=== PATIENT | male | born 1990 | race Caucasian/White ===

== ENCOUNTER 2024-11-01 06:58 | Observation (INO) | payer BC, SELFPAY ==
[2024-11-01] VITALS (32 sets, daily range): BP systolic 117–160; BP diastolic 71–92; PULSE 63–96; TEMP 36.5–36.7; O2SAT 91–100; BMI 43.5; BMI 44.2
--- OUTSIDE RECORDS SUMMARY | 2024-11-01 07:11 | XMS_ITS | Clinical Summary ---
Author Organization [facility] Address [address] [place] [id number] Care Team Providers Care Academic Guidance Specialist Name Role Phone Unavailable Primary Care Provider Unavailabl e Social History Tobacco Use Types Packs/Day Years Used Date Smoking Tobacco: Never Assessed Sex and Gender Information Value Date Recorded Sex Assigned at Not on file Legal Sex Male 3:29 PM EDT Gender Identity Male 09/06/2021 9:45 AM EDT Sexual Orientation Straight 09/06/2021 9: 45 AM EDT Plan of Treatment Health Maintenance Due Date Last Done Comments Tetanus: Every 10yrs 1990 Wellness Visit 09/03/1995 Depression Screening/Follow- Up (PHQ-2/9) 2004 HIV Screening 09/03/2007 Hepatitis C Screening 2010 COVID-19 Vaccine (2023-2 5 season) 2023 Influenza Vaccine (#1) 2024 Pneumococcal Vaccine: Ped or At-Risk Aged Out No longer eligible b ased on patient's age to complete this topic Insurance DENTAL DELTA DENTAL
--- OUTSIDE RECORDS SUMMARY | 2024-11-01 07:11 | XMS_ITS | Clinical Summary ---
Author Organization [facility] Address [address], [address] [place] [address] Care Team Providers Care Gas Scrubber Operator Name Role Phone Moustapha Rodriguez MD Primary Care Provider [phone] Allergies No known active allergies Medications butalbital-acetami nophen-caffeine (FIORICET, ESGIC) 50-325-40 MG per tabletIndications: Migraine without status migrainosus, not intractable, unspecified migraine type Take 1 tablet by mouth every 4 hours as needed for Headaches or Migraine 90 tablet 1 09/20/19 20 Active tamsulosin (FLOMAX) 0.4 MG capsule Take 1 capsule by mouth daily for 10 days 10 capsule 06/13/19 22 Active Additional Information Patient not taking.Reported on 01/06/2023 Ubrogepant (UBRELVY) 100 MG TABSIndications:Mi graine without status migrainosus, not intractable, unspecified migraine type Take 100 mg by mouth daily as needed (migraine KHOURY) 16 tablet 2 01/07/20 23 Active omeprazole (PRILOSEC) 20 MG delayed release capsuleIndications :Gastroesophageal reflux disease without esophagitis Take 1 capsule by mouth 2 times daily (before meals) 60 capsule 5 01/07/20 23 Active Tirzepatide (MOUNJARO) 2.5 MG/0.5ML SOPN SC injectionIndicatio ns:Obesity, Class III, BMI 40-49.9 (morbid obesity) ([facility]) Inject 0.5 mLs into the skin once a week 0.5 mL 1 01/07/20 23 Active losartan-hydroCHLO ROthiazide (HYZAAR) 50-12.5 MG per tabletIndications: Essential hypertension Take 0.5 tablets by mouth daily 30 tablet 1 01/07/20 23 Active ondansetron (ZOFRAN-ODT) 4 MG disintegrating tablet Take 1 tablet by mouth 3 times daily as needed for Nausea or Vomiting 21 tablet 10/04/19 24 Active Active Problems No known active problems Family History Medical History Relation Name Comments High Blood Pressure Father Obesity Mother Relation Name Status Comments Father Alive Mother Alive Social History Tobacco Use Types Packs/Day Years Used Date Smoking Tobacco: Never Smokeless Tobacco: Never Tobacco Cessation:Counseling Given: Not Answered Alcohol Use Standard Drinks/Week Comments No 0 (1 standard drink = 0.6 oz pur e alcohol) AUDIT-C Answer Date Recorded Q1: How often do you have a drink containing alcohol? Never 10/04/2023 Q2: How many drinks containi ng alcohol do you have on a typical day when you are drinking? Patient does not drink Q3: How often do you have si x or more drinks on one occasion? Never 10/04/2023 Overall Financial Resource Strain (CARDIA) Answe r Date Recorded How hard is it for you to pa y for the very basics like food, housing, medical care, and heating? Not hard at all 01/06/2023 PHQ-2 Answer Date Recorded PHQ-9 Total Score 0 01/06/2023 Hunger Vital Sign Answer Date Recorded Within the past 12 months, y ou worried that your food would run out before you got the money to buy more. Never true 01/07/20 23 Within the past 12 months, t he food you bought just didn't last and you didn't have money to get more. Never true 01/06/2023 PRAPARE - Transportation Answer Date Re corded Lack of Transportation (Medical) Not on file 01/06/2023 In the past 12 months, has l ack of transportation kept you from meetings, work, or from getting things needed for daily living? No 01/06/2023 Housing Stability Vital Sign Answer Juan e Recorded Unable to Pay for Housing in the Last Year Not o n file 01/06/2023 Number of Places Lived in the Last Year Not on f ile 01/06/2023 In the last 12 months, was t here a time when you did not have a steady place to sleep or slept in a nursing home (including now)? No 01/06/2023 Food Insecurity Answer Date Recorded Within the past 12 months, y ou worried that your food would run out before you got the money to buy more. 1 01/06/2023 Within the past 12 months, t he food you bought just didn't last and you didn't have money to get more. 1 01/06/2023 Interpersonal Safety Domain Source: IP Abuse Scr eening Answer Date Recorded Physical abuse Denies 10/04/2023 Verbal abuse Denies 10/04/2023 Emotional abuse Denies 10/04/2023 Financial abuse Denies 10/04/2023 Sexual abuse Denies 10/04/2023 Sex and Gender Information Value Date Recorded Sex Assigned at Not on file Legal Sex Male 9:48 PM EST Gender Identity Not on file Sexual Orientation Not on file Last Filed Vital Signs Vital Sign Reading Time Taken Comments Blood Pressure 136/79 10/04/2023 4:00 AM EDT Pulse 79 10/04/2023 4:00 AM EDT Temperature 36.4 C (97.6 F) 10/04/2023 12:08 AM EDT Respiratory Rate 16 10/04/2023 4:00 AM EDT Oxygen Saturation 97% 10/04/2023 4:00 AM EDT Inhaled Oxygen Concentration - - Weight 150 kg (330 lb 12.8 oz) 10/04/2023 12:05 AM EDT Height 185.4 cm (6' 1 ) 10/04/2023 12:05 AM EDT Body Mass Index 43.64 10/04/2023 12:05 AM EDT Plan of Treatment Health Maintenance Due Date Last Done Comments HIV screen 09/03/2007 Hepatitis C screen 2010 DTaP/Tdap/Td vaccine (1 - Tdap) 09/03/2011 Hepatitis B vaccine (1 of 3 - 19+ 3-dose series) 09/03/2011 COVID-19 Vaccine ( - 2023-2 5 season) 2023 Depression Screen 01/07/2024 01/06/2023 Flu vaccine (#1) 09/30/2024 HPV vaccine (No Doses Required) Completed Hepatitis A vaccine Aged Out No longe r eligible based on patient's age to complete this topic Hib vaccine Aged Out No longer eligi ble based on patient's age to complete this topic Meningococcal (ACWY) vaccine Aged Out No longer eligible based on patient's age to complete this topic Meningococcal B vaccine Aged Out No l onger eligible based on patient's age to complete this topic Pneumococcal 0-49 years Vaccine Aged Out No longer eligible based on patient's age to complete this topic Polio vaccine Aged Out No longer elig ible based on patient's age to complete this topic Varicella vaccine Discontinued Insurance BCBS OUT OF STATE Care Teams Gas Scrubber Operator Relationship Specialty Start Date End Date Moustapha Rodriguez MD PCP - General Internal Medicine 09/16/19
--- OUTSIDE RECORDS SUMMARY | 2024-11-01 07:11 | XMS_ITS | Clinical Summary ---
Author Organization [facility] Address [address] [place] [address] Care Team Providers Care Power Line Lineman Name Role Phone Moustapha Rodriguez MD Primary Care Provider [phone] Allergies No known active allergies Medications SUMAtriptan 50 MG tablet Take 50 mg by mouth once. May repeat in 2 hr, MAX 200MG/24HR Active omeprazole [address] capsule Take 1 capsule by mouth. 09/30/2021 Active Ubrogepant (Ubrelvy) 100 MG tablet Take 100 mg by mouth. 09/30/2021 Active Digestive Enzymes (DIGESTIVE ENZYME PO) Take by mouth. OTC Active Active Problems Problem Noted Date Diagnosed Date body mass index of 40.0-49.9 04/08/2024 Family History Medical History Relation Name Comments Hypertension Father Other - Specify Father stent placem ent in arms No known problems Mother Diabetes Sister Relation Name Status Comments Father Alive Mother Alive Sister Alive Social History Tobacco Use Types Packs/Day Years Used Date Smoking Tobacco: Never Smokeless Tobacco: Never Tobacco Cessation:Counseling Given: No Alcohol Use Standard Drinks/Week Comments Never 0 (1 standard drink = 0.6 oz pur e alcohol) Sex and Gender Information Value Date Recorded Sex Assigned at Not on file Legal Sex Male 9:16 AM EDT Gender Identity Male 04/08/2024 6:33 AM EST Sexual Orientation Straight 04/08/2024 6: 33 AM EST Last Filed Vital Signs Vital Sign Reading Time Taken Comments Blood Pressure 148/77 04/08/2024 9:53 AM EST Pulse 100 04/08/2024 9:53 AM EST Temperature 37.1 C (98.7 F) 10/30/2023 6:13 PM EDT Respiratory Rate 16 10/30/2023 6:13 PM EDT Oxygen Saturation 96% 04/08/2024 9:53 AM EST Inhaled Oxygen Concentration - - Weight 152.9 kg (337 lb) 04/08/2024 9:53 AM EST Height 185.4 cm (6' 1 ) 04/08/2024 9:53 AM EST Body Mass Index 44.46 04/08/2024 9:53 AM EST Plan of Treatment Health Maintenance Due Date Last Done Comments HEPATITIS C VIRUS SCREENING 1990 TETANUS 1990 HIV SCREENING DISCUSSION 09/03/2007 HEP B VACCINE (1 of 3 - 19+ 3-dose series) 09/03/2011 TDAP (ADULT) 09/03/2011 HPV VACCINE (1 - 3-dose SCDM series) 09/03/2019 COVID-19 VACCINE ( - 2023-2 5 season) 2024 INFLUENZA VACCINE (#1) 2024 PNEUMOCOCCAL VACCINE SERIES Aged Out No longer eligible based on patient's age to complete this topic Insurance [facility] PPO POS Care Teams Power Line Lineman Relationship Specialty Start Date End Date Moustapha Rodriguez MD [address] [place] [address] PCP - General Internal Medicine 04/08/24
--- NOTE | 2024-11-01 07:14 | US_ITS ---
The [address] [address] Patient Name: DUSTY RODRIGUEZ MRN: [id number] date: 1990 Sex: M Assigned Patient Location: ED.MAIN Current Patient Location: ED.MAIN Accession/Order Number: [id number] Exam Date: 11/01/2024 07:48 Report Date: 11/01/2024 09:00 At the request of: SAMY RIVERA DO Procedure: US right upper quadrant EXAMINATION TYPE: US right upper quadrant DATE OF EXAM ORDERED: 11/01/2024 8:27 AM HISTORY: RUQ pain, rule out cholecystitis, COMPARISON: NONE TECHNIQUE: Realtime imaging limited to the right upper quadrant was performed. FINDINGS: Stones are noted in the gallbladder lumen. Gallbladder wall measures 2 mm in thickness. The common bile but measures 4 mm in diameter. No intrahepatic or extrahepatic biliary dilatation is seen. The liver is normal in echo reflectivity. There is hepatopedal flow in the main portal vein. Partial visualization of the right kidney reveals no gross hydronephrosis. Partial visualization of the pancreas reveals no abnormality. US/US right upper quadrant IMPRESSION: No sonographic evidence of acute cholecystitis. There is a stone near the neck of the gallbladder lumen. Impression dictated by: Rafael Carmona M.D. 11/01/2024 9:00 AM Dictation Location: [facility]FORMERLY [facility]PITALSwitchboard Electronically authenticated by: [id number] Y Date: 11/01/2024 09:00
--- NOTE | 2024-11-01 07:20 | ED.GENADUL1 ---
HPI HPI - General Adult General Chief complaint: Chest Pain Stated complaint: CHEST/ABDOMINAL PAIN Time Seen by Provider: 11/01/24 07:06 Source: patient Mode of arrival: walk-in Limitations: no limitations History of Present Illness HPI narrative: Patient is a 34-year-old male presenting to the emergency department for evaluation of right upper quadrant abdominal pain. Patient states he has a history of gallstones. States that this episode of pain feels like his previous episodes of gallbladder attacks . He states the pain has been ongoing for the last 7 hours and is persistent. He states it is located in the right upper quadrant/epigastric area and radiates to his back. He denies vomiting, but is feeling nauseous. Denies constipation or diarrhea. No chest pain or shortness of breath. No fevers or chills. Denies history of intra-abdominal surgeries. Related Data Home Medications ?Medication ?Instructions ?Recorded ?Confirmed No Known Home Medications 11/01/24 11/01/24 Allergies Allergy/AdvReac Type Severity Reaction Status Date / Time No Known Drug Allergies Allergy Verified 11/01/24 07:08 Opioid HPI Opioid Management Most Recent Opioid Data: Last Pain Scale 4 Today, 10:31 Last ED Pain Assessment Today, 09:37 Last MAR Pain Assessment Today, 07:29 Review of Systems ROS Status of ROS 10 or more systems reviewed and unremarkable except as noted in history and below PFSH PFSH Social History Little interest or pleasure in doing things: not at all Feeling down, depressed, or hopeless: not at all Exam Narrative Exam Narrative: CONSTITUTIONAL: Patient appears uncomfortable and nauseous, answering questions of migraines appropriately. SKIN: Was warm and dry. EYES: No scleral icterus. EARS, NOSE, THROAT: Moist oral mucosa. RESPIRATORY: Clear to auscultation bilaterally, no wheezes, crackles, or stridor, no use of accessory muscles CARDIOVASCULAR: Normal rate and regular rhythm. There is no S3, S4, murmur, rub. GASTROINTESTINAL: Tenderness to palpation in the epigastrium and right upper quadrant. Negative Onofre sign. No rebound tenderness or guarding. MUSCULOSKELETAL: No peripheral edema. NEUROLOGIC: Patient is awake and alert. Facies were symmetrical. Constitutional Vital Signs, click to edit/add: Last Vital Signs Temp 97.8 F 11/01/24 07:04 Pulse 70 11/01/24 07:04 Resp 20 11/01/24 07:04 BP 148/78 H 11/01/24 07:04 Pulse Ox 100 11/01/24 07:14 O2 Del Method Room Air 11/01/24 07:14 Course Vital Signs Vital signs: Vital Signs Temperature 97.8 F 11/01/24 07:04 Pulse Rate 70 11/01/24 07:04 Respiratory Rate 20 11/01/24 07:04 Blood Pressure 148/78 H 11/01/24 07:04 Pulse Oximetry 99 11/01/24 07:04 Temperature 97.8 F 11/01/24 07:04 Pulse Rate 70 11/01/24 07:04 Respiratory Rate 20 11/01/24 07:04 Blood Pressure 148/78 H 11/01/24 07:04 Pulse Oximetry 100 11/01/24 07:14 Oxygen Delivery Method Room Air 11/01/24 07:14 Medical Decision Making MDM Narrative Medical decision making narrative: Patient is a 34-year-old male, history significant for GERD and cholelithiasis, presenting to the emergency department with a 7-hour history of persistent epigastric/right upper quadrant abdominal pain. Vital signs arrival are within normal limits. He is afebrile and hemodynamically stable. Examination as noted above. My clinical impression that the patient's symptoms was likely secondary to biliary colic/symptomatic cholelithiasis. Right upper quadrant ultrasound was ordered to rule out cholecystitis. Other potential differential diagnoses include pancreatitis, gastritis, GERD. IV was established and laboratory studies were obtained. He was given IV Dilaudid and IV Zofran for symptomatic treatment. 12 Lead EKG at triage: Normal sinus rhythm at a rate of 64. Normal axis. No ST segment elevations. QRS, [place], and QTc interval within normal limits. Final impression: normal sinus rhythm without evidence of acute myocardial ischemia. Laboratory studies were unremarkable. Only a mild leukocytosis. No significant electrolyte or metabolic derangement. No evidence of acute kidney injury. No anemia or thrombocytopenia. No transaminitis or hyperbilirubinemia. Lipase non-elevated. Right upper quadrant ultrasound independent reviewed and interpreted by myself and radiology demonstrated gallstones at the neck of the gallbladder without evidence of acute cholecystitis. On reevaluation after 1 mg of IV Dilaudid, the patient states he still having significant pain and is requesting more medication. He was dosed with an additional 1 mg of IV Dilaudid. On further reevaluation, patient states his pain went from a 10/10 to a 5/10. He still does not feel comfortable being discharged home as he is having persistent pain. He was given additional dose of 0.5 mg IV Dilaudid. After the third round of pain medication, patient is still having intractable pain. Therefore, I do believe he warrants admission to the observation unit for further pain management. I discussed the patient with hospitalist, Dr. Saucedo, who accepted the patient to his service. FINAL IMPRESSION: #Acute symptomatic cholelithiasis DISPOSITION: Admitted to the observation CONDITION: Fair Medical Records Medical records reviewed: Yes I reviewed the patient's medical records Lab Data Lab results reviewed: Yes I reviewed the patient's lab results Labs: Lab Results 11/01/24 Range/Units 07:20 WBC 12.7 H (4.0-11.0) 10^3/uL RBC 5.19 (4.70-6.10) 10^6/uL Hgb 14.4 (14.0-18.0) g/dL Hct 42.0 (42.0-54.0) % MCV 80.9 (80.0-94.0) fL MCH 27.7 (25.9-34.0) pg MCHC 34.3 (29.9-35.2) g/dL RDW 12.9 (11.0-15.0) % Plt Count 241 (150-450) 10^3/uL MPV 10.7 (9.5-13.5) fL Neut % (Auto) 83.2 H (43.0-75.0) % Lymph % (Auto) 12.2 L (20.5-60.0) % [place] % (Auto) 3.5 (1.7-12.0) % Eos % (Auto) 0.2 L (0.9-7.0) % Baso % (Auto) 0.3 (0.2-2.0) % Neut # (Auto) 10.6 H (1.4-6.5) 10^3/uL Lymph # (Auto) 1.6 (1.2-3.8) 10^3/uL [place] # (Auto) 0.4 (0.3-0.8) 10^3/uL Eos # (Auto) 0.0 (0.0-0.7) 10^3/uL Baso # (Auto) 0.0 (0.0-0.1) 10^3/uL Abs Immat Gran (auto) 0.08 H (0.00-0.03) 10^3/uL Imm/Tot Granulo (auto) 0.6 H (0.0-0.5) % Sodium 140 (136-145) mmol/L Potassium 4.1 (3.5-5.1) mmol/L Chloride 102 (98-107) mmol/L Carbon Dioxide 27.6 (21.0-32.0) mmol/L Anion Gap 14.5 BUN 13.0 (7.0-18.0) mg/dL Creatinine 0.95 (0.70-1.30) mg/dL Est GFR ( Amer) >60 (>=60 mL/min/1.73m^2) Est GFR (Non-Af Amer) >60 (>=60 mL/min/1.73m^2) BUN/Creatinine Ratio 13.7 Glucose 151 H (74-106) mg/dL Calcium 8.9 (8.5-10.1) mg/dL Total Bilirubin 0.4 (0.2-1.0) mg/dL AST 16 (15-37) U/L ALT 42 (16-63) U/L Alkaline Phosphatase 93 (46-116) U/L Total Protein 8.4 H (6.4-8.2) g/dL Albumin 3.8 (3.4-5.0) g/dL Globulin 4.6 g/dL Albumin/Globulin Ratio 0.8 Lipase 17.0 (16.0-77.0) U/L Imaging Data US - abdomen: Attestation: I personally reviewed and interpreted this imaging study as follows: Radiologist's impression: ITS Impressions Upper Quadrant Ultrasound 11/01/24 07:14 IMPRESSION: No sonographic evidence of acute cholecystitis. There is a stone near the neck of the gallbladder lumen. Impression dictated by: Rafael Carmona M.D. 11/01/2024 9:00 AM Dictation Location: [place] [address] Electronically authenticated by: [id number] Y Date: 11/01/2024 09:00 Discharge Plan Discharge Chief Complaint: Chest Pain Clinical Impression: Cholelithiases Qualifiers: Cholelithiasis location: gallbladder Cholecystitis presence: without cholecystitis Biliary obstruction: without biliary obstruction Qualified Code(s): K80.20 - Calculus of gallbladder without cholecystitis without obstruction Patient Disposition: Admitted as Observation Time of Disposition Decision: 11:03 Condition: Good
[2024-11-01] MEDS: HYDROMORPHONE HCL 1 MG/ML CARTRIDGE IV ×2 (07:29→08:50)
[2024-11-01 07:33] LABS: Hematocrit 42.0 % (42.0-54.0); Hemoglobin 14.4 g/dL (14.0-18.0); Immature Granulocytes Abs Auto 0.08 10^3/uL (0.00-0.03); Immature Granulocytes Pct Auto 0.6 % (0.0-0.5); Lymphocytes Absolute Auto 1.6 10^3/uL (1.2-3.8); Mean Corpuscular HGB Conc 34.3 g/dL (29.9-35.2); Mean Corpuscular Hemoglobin 27.7 pg (25.9-34.0); Mean Corpuscular Volume 80.9 fL (80.0-94.0); Platelet Count 241 10^3/uL (150-450); Red Blood Count 5.19 10^6/uL (4.70-6.10); White Blood Count 12.7 10^3/uL (4.0-11.0)
[2024-11-01 07:46] LABS: Alanine Aminotransferase 42 U/L (16-63); Albumin Globulin Ratio 0.8; Albumin Level 3.8 g/dL (3.4-5.0); Alkaline Phosphatase 93 U/L (46-116); Anion Gap 14.5; Aspartate Amino Transferase 16 U/L (15-37); Blood Urea Nitrogen 13.0 mg/dL (7.0-18.0); Calcium 8.9 mg/dL (8.5-10.1); Carbon Dioxide 27.6 mmol/L (21.0-32.0); Chloride 102 mmol/L (98-107); Estimated GFR (African America >60 (>=60 mL/min/1.73m^2); Estimated GFR (Non-African Ame >60 (>=60 mL/min/1.73m^2); Globulin 4.6 g/dL; Glucose 151 mg/dL (74-106); Potassium 4.1 mmol/L (3.5-5.1); Sodium 140 mmol/L (136-145); Total Protein 8.4 g/dL (6.4-8.2)
[2024-11-01 07:53] LABS: Lipase 17.0 U/L (16.0-77.0)
[2024-11-01] MEDS: HYDROMORPHONE HCL 0.5 MG/0.5 ML SYRINGE IV (09:48)
--- NOTE | 2024-11-01 10:06 | ECG_ITS ---
The [facility] Test Date: 2024-11-01 Pat Name: DUSTY RODRIGUEZ Department: Room: - Gender: Male Inspector Motor Vehicles: : 1990 Requested By: [id number] Order Number: [id number] Reading MD: CARMELO RAMIREZ Measurements Intervals [place] Rate: 64 P: -59 CT: 130 QRS: 89 QRSD: 100 T: 22 QT: 394 QTc: 404 Interpretive Statements Probable ectopic atrial rhythm 9140 abnormal rhythm ECG No previous ECG available for comparison Electronically Signed On 11-02-2024 13:49:09 EDT by CARMELO RAMIREZ
[2024-11-01 11:21] LABS: Magnesium 1.8 mg/dL (1.8-2.4)
[2024-11-01] MEDS: MORPHINE SULFATE 2 MG/ML SYRINGE IV (12:07)
[2024-11-01] MEDS: KETOROLAC TROMETHAMINE 30 MG/ML VIAL 15 MG IVP (14:49)
--- NOTE | 2024-11-01 15:24 | PM.IMHP1 ---
Internal Medicine - H&P: HPI History of Present Illness Chief complaint: CHEST/ABDOMINAL PAIN SYMPTOMATIC CHOLELITHIASIS [facility] Medical History (Updated 11/01/24 @ 14:02 by Antonia Craft) GERD (gastroesophageal reflux disease) ?K21.9 - Gastro-esophageal reflux disease without esophagitis (ICD-10) Family History (Updated 11/01/24 @ 14:03 by Antonia Craft) Father Family history of coronary artery disease Social History (Updated 11/01/24 @ 14:14 by Antonia Craft) Within the past year, how often did you have a drink containing alcohol: never Score interpretation: A score less than 4 is consistent with normal alcohol consumption. 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 Highest level of school completed/degree received: high school graduate Do you want help with school or training: No Are you now , , , , never or living with a partner: In a typical week, how many times do you talk on the telephone with family, friends, or neighbors: 3 or more times per week How often do you get together with friends or relatives: 3 or more times per week How often do you attend zoroastrianism or mandaeism services: never Do you belong to any clubs or organizations such as zoroastrianism groups unions, fraternal or athletic groups, or school groups: no Total score: 1 Score interpretation: A score of less than or equal to 1 indicates the most socially isolated. Little interest or pleasure in doing things: more than half the days Feeling down, depressed, or hopeless: more than half the days Feel stressed/tense/nervous/anxious/difficulty sleeping: very much Life stressors: divorce/separation, financial matters and legal matters Due to disability, difficulty making decisions: No Do you think of yourself as: straight/heterosexual Gender Identity: male Meds Home Medications and Allergies Home Medications ?Medication ?Instructions ?Recorded ?Confirmed ?Type omeprazole 20 mg capsule,delayed 20 mg PO DAILY 11/01/24 11/01/24 History release Allergies Allergy/AdvReac Type Severity Reaction Status Date / Time No Known Drug Allergies Allergy Verified 11/01/24 07:08 Exam Constitutional Vital Signs, click to edit/add: Last Vital Signs Temp 98.1 F 11/01/24 13:15 Pulse 78 11/01/24 13:15 Resp 18 11/01/24 13:15 BP 160/92 H 11/01/24 13:15 Pulse Ox 93 L 11/01/24 13:15 O2 Del Method Room Air 11/01/24 13:15 Internal Medicine - H&P: Reslt Labs Labs: Short CBC 11/01/24 Range/Units 07:20 WBC 12.7 H (4.0-11.0) 10^3/uL Hgb 14.4 (14.0-18.0) g/dL Hct 42.0 (42.0-54.0) % Plt Count 241 (150-450) 10^3/uL BMP 11/01/24 07:20 Sodium 140 Potassium 4.1 Chloride 102 Carbon Dioxide 27.6 BUN 13.0 Creatinine 0.95 Glucose 151 H Calcium 8.9 Liver Function 11/01/24 Range/Units 07:20 Total Bilirubin 0.4 (0.2-1.0) mg/dL AST 16 (15-37) U/L ALT 42 (16-63) U/L Alkaline Phosphatase 93 (46-116) U/L Albumin 3.8 (3.4-5.0) g/dL
[2024-11-01] MEDS: HYDROCODONE/ACET 5-325 MG TABLET 1 TAB PO (19:27)
[2024-11-02] VITALS: BP 113/76; PULSE 85; TEMP 36.9; O2SAT 93
[2024-11-02 03:46] VITALS: BP 117/68; TEMP 36.9; O2SAT 93
[2024-11-02 05:41] LABS: Hematocrit 38.8 % (42.0-54.0); Hemoglobin 13.2 g/dL (14.0-18.0); Immature Granulocytes Abs Auto 0.06 10^3/uL (0.00-0.03); Immature Granulocytes Pct Auto 0.5 % (0.0-0.5); Lymphocytes Absolute Auto 2.4 10^3/uL (1.2-3.8); Mean Corpuscular HGB Conc 34.0 g/dL (29.9-35.2); Mean Corpuscular Hemoglobin 27.3 pg (25.9-34.0); Mean Corpuscular Volume 80.3 fL (80.0-94.0); Platelet Count 226 10^3/uL (150-450); Red Blood Count 4.83 10^6/uL (4.70-6.10); White Blood Count 12.1 10^3/uL (4.0-11.0)
[2024-11-02 06:08] LABS: Alanine Aminotransferase 39 U/L (16-63); Albumin Globulin Ratio 0.8; Albumin Level 3.3 g/dL (3.4-5.0); Alkaline Phosphatase 81 U/L (46-116); Anion Gap 10.9; Aspartate Amino Transferase 13 U/L (15-37); Blood Urea Nitrogen 11.0 mg/dL (7.0-18.0); Calcium 8.8 mg/dL (8.5-10.1); Carbon Dioxide 27.8 mmol/L (21.0-32.0); Chloride 105 mmol/L (98-107); Estimated GFR (African America >60 (>=60 mL/min/1.73m^2); Estimated GFR (Non-African Ame >60 (>=60 mL/min/1.73m^2); Globulin 4.2 g/dL; Glucose 112 mg/dL (74-106); Magnesium 2.1 mg/dL (1.8-2.4); Potassium 3.7 mmol/L (3.5-5.1); Sodium 140 mmol/L (136-145); Total Protein 7.5 g/dL (6.4-8.2)
[2024-11-02] MEDS: HYDROCODONE/ACET 5-325 MG TABLET 1 TAB PO (06:38)
[2024-11-02 07:08] VITALS: BP 117/68; PULSE 75; TEMP 36.9; O2SAT 93
--- NOTE | 2024-11-02 09:00 | CM.NOTE ---
Rounds made with Dr. Saucedo, pt will discharge to home today and has appointment scheduled to see Dr. Stewart.
[2024-11-02] MEDS: KETOROLAC TROMETHAMINE 30 MG/ML VIAL 15 MG IVP (09:16)
--- NOTE | 2024-11-02 11:39 | PM.DS1 ---
DS: Providers Provider Date of admission: 11/01/24 13:18 Primary care physician: Non-Staff Physician, Consults: 11/01/24 15:21 Consult to General Surgeon Routine Consulting Provider: Irving Denise Reason for consultation: cholecystitis Discharging clinician: JUNE FIGUEROA DS: Diagnosis Discharge Diagnosis (1) Cholelithiases: Qualifiers: Biliary obstruction: without biliary obstruction Cholecystitis presence: without cholecystitis Cholelithiasis location: gallbladder Qualified Code(s): K80.20 - Calculus of gallbladder without cholecystitis without obstruction (2) Biliary colic: DS: Summary Hospital Course Hospital Course: Mr Pabon is a 34-year-old male who was admitted the hospital the afternoon of November 01 with a chief complaint of right upper abdominal pain. This been going on for about 3 years now, ultrasound in emergency room shows cholelithiasis with a stone near the gallbladder neck and gallbladder sludge, no evidence of acute cholecystitis. He was subsequently admitted to the hospital for pain control. He received Dilaudid and Toradol, this did improve his pain significantly. I did consult our on-call general surgeon however he let us know that he is no longer seeing patients in this hospital. I did reach out to the [facility]'s surgical group, please see my H&P yesterday afternoon for details on that. The patient was kept overnight for pain control monitoring, the morning of the , he notes his abdominal pain was essentially resolved though he had a headache from sleeping on the bed. It was a tension headache, left-sided, dull ache and throughout the entire be of his left side of his head. He did manage to get an appointment in the general surgery office for November 07 for evaluation of his gallbladder symptoms. He was discharged after the hospital the afternoon of the third, he was tolerating food well, he did get a prescription for Tylenol, Saunemin, and Zofran to hold him over until he sees the surgeons to hopefully avoid any further trips to the emergency room. Time Spent with Patient Time attestation: Total time spent providing and/or coordinating discharge services: Exam Narrative Exam Narrative: General: Awake and alert, no acute distress HEENT: Normocephalic, atraumatic, no scleral icterus noted Lungs: Clear to auscultation bilaterally Cardiac: Regular rate and rhythm, no murmurs appreciated GI: Soft, nontender, regular bowel sounds. Extremities: Active and passive range of motion intact throughout, no edema Neuro: Cranial nerves II through XII intact, no focal deficits noted Skin: No rashes or lesions, no signs of jaundice Constitutional Vital Signs, click to edit/add: Last Vital Signs Temp 98.4 F 11/02/24 07:08 Pulse 75 11/02/24 07:08 Resp 18 11/02/24 07:08 BP 117/68 11/02/24 07:08 Pulse Ox 93 L 11/02/24 07:08 O2 Del Method Room Air 11/02/24 07:08 DS: Data Data Completed and Pending Labs on day of discharge: Labs from last 24 hours 11/02/24 05:17 WBC 12.1 H RBC 4.83 Hgb 13.2 L Hct 38.8 L MCV 80.3 MCH 27.3 MCHC 34.0 RDW 13.1 Plt Count 226 MPV 10.5 Neut % (Auto) 71.6 Lymph % (Auto) 19.8 L Tillman % (Auto) 6.8 Eos % (Auto) 1.1 Baso % (Auto) 0.2 Neut # (Auto) 8.6 H Lymph # (Auto) 2.4 Tillman # (Auto) 0.8 Eos # (Auto) 0.1 Baso # (Auto) 0.0 Abs Immat Gran (auto) 0.06 H Imm/Tot Granulo (auto) 0.5 Sodium 140 Potassium 3.7 Chloride 105 Carbon Dioxide 27.8 Anion Gap 10.9 BUN 11.0 Creatinine 0.80 Est GFR ( Amer) >60 Est GFR (Non-Af Amer) >60 BUN/Creatinine Ratio 13.8 Glucose 112 H Calcium 8.8 Magnesium 2.1 Total Bilirubin 0.5 AST 13 L ALT 39 Alkaline Phosphatase 81 Total Protein 7.5 Albumin 3.3 L Globulin 4.2 Albumin/Globulin Ratio 0.8 Discharge Plan Discharge Disposition: Home, Self-Care Condition: Good Discharge Medications: New acetaminophen [Tylenol] 325 mg Tablet 650 mg PO Q4H PRN (Reason: Pain Scale 1-3) 5 Days Qty: 30 0RF hydrocodone-acetaminophen 5-325 mg Tablet 1 tab PO Q8H PRN (Reason: Pain Scale 4-6) 5 Days Qty: 15 0RF ondansetron 4 mg tablet,disintegrating 4 mg PO Q8H 5 Days Qty: 15 0RF Continued omeprazole 20 mg capsule,delayed release(DR/EC) 20 mg PO DAILY Activity: increase activity as tolerated Diet: other Diet Detail: Limit fatty, spicy, greasy foods. Print Language: Niuean Patient Instructions: Acetaminophen (By mouth), Hydrocodone/Acetaminophen (By mouth), Ondansetron (By mouth), Gallstones (DC) Forms: Portal Instructions Follow Up Appointments: 11/07 @ 3:30pm with Dr. Benavidez (gen. surgery) [address] [place] [address] [phone] [place] [phone].. Discharge Date/Time: 11/02/24 10:59
[2024-11-02 13:47] LABS: INR 1.07; Prothrombin Time 11.3 sec (9.0-11.6)
--- NOTE | 2024-11-04 10:41 | CM.DCFOLLOWU ---
Person spoke with:patient How are you feeling? doing well, much better and at work today How is your pain?none Did you understand your discharge instructions?yes Do you have any questions about your discharge instructions?no Were you given any prescriptions at discharge?yes Were you able to get your prescriptions filled?yes Do you understand how to take your medications as ordered?yes Do you have any questions about your follow up appointment and do you plan to keep your follow up appointment? no questions, follow up with gen surg reviewed Is there anything else that you would like to discuss?no Questions/Comments/Concerns/Other:none
== END 2024-11-02 10:59 | disposition home or self-care (01) ==
LOC: ER 13:09 → MS 13:24
PROVIDERS: Admitting Provider Internal Medicine; Emergency Provider Student in an Organized Health Care Education/Training Program; Visit Provider Internal Medicine
DX: K80.70 Calculus of gallbladder and bile duct without cholecystitis without obstruction (principal)
CPT/HCPCS: 36415; 76705; 80053; 83690; 83735; 85025; 85610; 93005; 96374; 96375; 96376; 99285; G0378; J1171; J1885; J2270; J2405